=== PATIENT | male | born 1990 | race Asian ===

== ENCOUNTER 2018-03-03 05:59 | Inpatient (IN) | payer MEDICARE, MEDICAID ==
[~2018-03-03] VITALS: Ht 167.6 cm; Wt 73.7 kg
[~2018-03-03 05:59] MED LIST: RISP3 PO
[2018-03-03 06:57] LABS: BASOPHILS % (AUTO) 0.5 % (0.0-2.0); EOSINOPHILS % (AUTO) 0.1 % (1.0-6.0); HEMATOCRIT 48.6 % (41-53); HEMOGLOBIN 17.4 g/dL (13.5-17.5); LYMPHOCYTES # (AUTO) 1.3 K/uL (1.0-4.8); LYMPHOCYTES % (AUTO) 8.1 % (22.0-44.0); MEAN CORPUSCULAR HEMOGLOBIN 32.3 pg (26.0-34.0); MEAN CORPUSCULAR HGB CONC 35.9 G/dL (31.0-37.0); MEAN CORPUSCULAR VOLUME 90 fL (80-100); MONOCYTES # (AUTO) 1.5 K/uL (0.1-1.0); MONOCYTES % (AUTO) 9.3 % (2.0-9.0); NEUTROPHILS # (AUTO) 13.3 K/uL (1.8-7.7); PLATELET COUNT (AUTO) 289 K/uL (150-450); RED BLOOD CELL COUNT(AUTO) 5.39 MIL/uL (4.50-5.90); RED CELL DISTRIBUTION WIDTH 12.9 % (11.5-14.5)
[2018-03-03 07:14] LABS: ANION GAP 12 mmol/L (8-16); CALCIUM, TOTAL 9.2 mg/dL (8.8-10.5); CARBON DIOXIDE 22 mmol/L (22-29); CHLORIDE 104 mmol/L (98-107); CREATININE 1.31 mg/dL (0.60-1.30); GLOMERULAR FILTR. RATE CALC > 60 mL/min (>60); GLUCOSE,RANDOM 112 mg/dL (70-110); POTASSIUM 3.7 mmol/L (3.5-5.1); SODIUM SERUM 138 mmol/L (136-145); UREA NITROGEN, BLOOD 10 mg/dL (7-18)
[2018-03-03] MEDS ORDERED: LORazepam 2 MG/ML VIAL IM ONE (07:15)
[2018-03-03] MEDS ORDERED: DiphenhydrAMINE HCL 50 MG/ML VIAL IM ONE (07:15)
[2018-03-03] MEDS ORDERED: HALOPERIDOL LACTATE 5 MG/ML VIAL IM ONE (07:15)
[2018-03-03 07:21] LABS: ALANINE AMINOTRANSFERASE 40 U/L (12-78); ALBUMIN 4.4 g/dL (3.4-5.0); ALKALINE PHOSPHATASE 81 U/L (46-116); ASPARTATE AMINOTRANSFERASE 81 U/L (15-37); BILIRUBIN,TOTAL 0.8 mg/dL (0.1-1.0); TOTAL PROTEIN, SERUM 8.4 g/dL (6.4-8.2)
[2018-03-03] MEDS ORDERED: ZOLPIDEM TARTRATE 10 MG TABLET PO PRN (09:15)
[2018-03-03] MEDS ORDERED: PETROLATUM,WHITE 71 GM JELLY TP PRN (13:15)
[2018-03-03] MEDS ORDERED: CloNIDine HCL 0.1 MG TABLET PO PRN (13:15)
[2018-03-03] MEDS ORDERED: IBUPROFEN 600 MG TABLET PO PRN (13:15)
[2018-03-03] MEDS ORDERED: ACETAMINOPHEN 325 MG TABLET PO PRN (13:15)
[2018-03-03] MEDS ORDERED: BACITRACIN 28.4 GM OINTMENT TP PRN (13:15)
[2018-03-03] MEDS ORDERED: MAGNESIUM HYDROXIDE SUSPENSION 30 ML UDCUP PO PRN (13:15)
[2018-03-03] MEDS ORDERED: ONDANSETRON HCL 4 MG TABLET PO PRN (13:15)
[2018-03-03] MEDS ORDERED: LOPERAMIDE HCL 2 MG CAPSULE PO PRN (13:15)
[2018-03-03] MEDS ORDERED: BENZOCAINE/MENTHOL LOZENGE MM PRN (13:15)
[2018-03-03] MEDS ORDERED: ALBUTEROL SULFATE HFA 90 MCG/PUFF 8 GM INHALER IH PRN (13:15)
[2018-03-03] MEDS ORDERED: MAG HYDROX/AL HYDROX/SIMETH ES 30 ML SUSPENSION UDCUP PO PRN (13:15)
[2018-03-03] MEDS: DOCUSATE SODIUM 100 MG CAPSULE PO SCH (13:58)
[2018-03-03] MEDS: OMEPRAZOLE 20 MG CAPSULE PO SCH (13:58)
[2018-03-03 14:34] VITALS: BP 124/68
[2018-03-03] MEDS: RisperiDONE 3 MG TABLET PO SCH (16:29)
[2018-03-03] MEDS: NICOTINE 21 MG/24 HOUR PATCH TD SCH (17:45)
[2018-03-03 21:45] VITALS: BP 129/73
[2018-03-04 02:11] VITALS: BP 119/66
[2018-03-04 06:59] LABS: HEMATOCRIT 48.7 % (41-53); MEAN CORPUSCULAR HEMOGLOBIN 31.9 pg (26.0-34.0); MEAN CORPUSCULAR HGB CONC 34.9 G/dL (31.0-37.0); MEAN CORPUSCULAR VOLUME 92 fL (80-100); PLATELET COUNT (AUTO) 293 K/uL (150-450); RED BLOOD CELL COUNT(AUTO) 5.32 MIL/uL (4.50-5.90); RED CELL DISTRIBUTION WIDTH 12.5 % (11.5-14.5)
[2018-03-04 07:04] LABS: ANION GAP 9 mmol/L (8-16); CALCIUM, TOTAL 8.7 mg/dL (8.8-10.5); CARBON DIOXIDE 25 mmol/L (22-29); CHLORIDE 102 mmol/L (98-107); CREATININE 1.12 mg/dL (0.60-1.30); GLOMERULAR FILTR. RATE CALC > 60 mL/min (>60); GLUCOSE,RANDOM 94 mg/dL (70-110); PHOSPHORUS 3.7 mg/dL (2.5-4.9); SODIUM SERUM 136 mmol/L (136-145); UREA NITROGEN, BLOOD 14 mg/dL (7-18)
[2018-03-04 08:03] LABS: BAND NEUTROPHILS % (MANUAL) 1 % (0-5); EOSINOPHILS % (MANUAL) 1 % (1-6); LYMPHOCYTES % (MANUAL) 22 % (22-44); MONOCYTES % (MANUAL) 10 % (2-9); SEGMENTED NEUTROPHILS % 66 % (40-70)
[2018-03-04] MEDS: RisperiDONE 3 MG TABLET PO SCH (08:46)
[2018-03-04] MEDS: OMEPRAZOLE 20 MG CAPSULE PO SCH (08:46)
[2018-03-04] MEDS: DOCUSATE SODIUM 100 MG CAPSULE PO SCH (08:46)
[2018-03-04] MEDS: NICOTINE 21 MG/24 HOUR PATCH TD SCH (08:48)
[2018-03-04 09:00] VITALS: BP 126/68
[2018-03-04] MEDS: HALOPERIDOL 5 MG TABLET PO SCH (16:10)
[2018-03-04] MEDS: LORazepam 2 MG TABLET PO PRN (17:48)
[2018-03-04] MEDS: HALOPERIDOL 5 MG TABLET PO PRN (18:52)
[2018-03-04 22:36] VITALS: BP 126/77
[2018-03-05 08:02] VITALS: BP 124/70
[2018-03-05] MEDS: DOCUSATE SODIUM 100 MG CAPSULE PO SCH (08:02)
[2018-03-05] MEDS: HALOPERIDOL 5 MG TABLET PO SCH ×2 (08:02→16:07)
[2018-03-05] MEDS: OMEPRAZOLE 20 MG CAPSULE PO SCH (08:02)
[2018-03-05] MEDS: NICOTINE 21 MG/24 HOUR PATCH TD SCH (09:00)
[2018-03-05 16:00] VITALS: BP 115/76
[2018-03-05] MEDS: LORazepam 2 MG TABLET PO PRN (16:06)
[2018-03-06] MEDS: DOCUSATE SODIUM 100 MG CAPSULE PO SCH (08:09)
[2018-03-06] MEDS: OMEPRAZOLE 20 MG CAPSULE PO SCH (08:09)
[2018-03-06] MEDS: HALOPERIDOL 5 MG TABLET PO SCH ×2 (08:09→16:12)
[2018-03-06 08:23] VITALS: BP 118/68
[2018-03-06] MEDS: NICOTINE 21 MG/24 HOUR PATCH TD SCH (09:00)
[2018-03-06] MEDS: LORazepam 2 MG TABLET PO PRN ×2 (13:45→17:48)
[2018-03-06] MEDS: HALOPERIDOL 5 MG TABLET PO PRN (13:45)
[2018-03-06 16:14] VITALS: BP 131/73
[2018-03-07] MEDS: OMEPRAZOLE 20 MG CAPSULE PO SCH (08:05)
[2018-03-07] MEDS: HALOPERIDOL 5 MG TABLET PO SCH (08:06)
[2018-03-07 08:21] VITALS: BP 111/77
[2018-03-07] MEDS: NICOTINE 21 MG/24 HOUR PATCH TD SCH (09:00)
[2018-03-07] MEDS: DOCUSATE SODIUM 100 MG CAPSULE PO SCH (09:00)
[2018-03-07 16:27] VITALS: BP 122/75
[2018-03-07] MEDS: HALOPERIDOL 10 MG TABLET PO SCH (18:10)
[2018-03-07] MEDS: LORazepam 2 MG TABLET PO PRN (18:10)
[2018-03-08 08:23] VITALS: BP 114/68
[2018-03-08] MEDS: OMEPRAZOLE 20 MG CAPSULE PO SCH (08:33)
[2018-03-08] MEDS: DOCUSATE SODIUM 100 MG CAPSULE PO SCH (08:33)
[2018-03-08] MEDS: HALOPERIDOL 10 MG TABLET PO SCH ×2 (08:33→17:56)
[2018-03-08] MEDS ORDERED: HALOPERIDOL 10 MG TABLET PO SCH (09:00)
[2018-03-08] MEDS: NICOTINE 21 MG/24 HOUR PATCH TD SCH (09:00)
[2018-03-08] MEDS: LORazepam 2 MG TABLET PO PRN (15:40)
[2018-03-08 16:28] VITALS: BP 116/62
[2018-03-09] MEDS: HALOPERIDOL 10 MG TABLET PO SCH ×2 (08:05→16:26)
[2018-03-09] MEDS: DOCUSATE SODIUM 100 MG CAPSULE PO SCH (08:05)
[2018-03-09] MEDS: OMEPRAZOLE 20 MG CAPSULE PO SCH (08:05)
[2018-03-09] MEDS: LORazepam 2 MG TABLET PO PRN ×3 (08:14→17:53)
[2018-03-09 08:56] VITALS: BP 120/70
[2018-03-09 16:06] VITALS: BP 128/78
[2018-03-10] MEDS: LORazepam 2 MG TABLET PO PRN (05:43)
[2018-03-10 06:09] VITALS: BP 104/64
[2018-03-10 08:00] VITALS: BP 116/67
[2018-03-10] MEDS ORDERED: HALOPERIDOL DECANOATE 100 MG/ML VIAL IM SCH (09:00)
[2018-03-10] MEDS: HALOPERIDOL 10 MG TABLET PO SCH (09:13)
[2018-03-10] MEDS: DOCUSATE SODIUM 100 MG CAPSULE PO SCH (09:13)
[2018-03-10] MEDS: OMEPRAZOLE 20 MG CAPSULE PO SCH (09:13)
[2018-03-10] MEDS ORDERED: HALO10 PO (09:39)
[2018-03-10] MEDS ORDERED: HALO100V4 IM (09:39)
[2018-03-10] MEDS ORDERED: DSS100 PO (09:48)
[2018-03-10] MEDS ORDERED: OMEP20 PO (09:53)
== END 2018-03-10 11:00 | disposition home or self-care (01) | DRG 885 ==
LOC: EMS 06:00 → 3EC 09:58 → EMS 10:03 → 3EI 03-09 22:08
PROVIDERS: ADMIT Psychiatry & Neurology Psychiatry; ATTEND Psychiatry & Neurology Psychiatry
DX: F20.0 Paranoid schizophrenia (principal); F19.90 Other psychoactive substance use, unspecified, uncomplicated; D72.829 Elevated white blood cell count, unspecified; G47.00 Insomnia, unspecified; F79 Unspecified intellectual disabilities; F41.9 Anxiety disorder, unspecified; F17.210 Nicotine dependence, cigarettes, uncomplicated; K59.00 Constipation, unspecified; Z78.1 Physical restraint status; Z91.19 Patient's noncompliance with other medical treatment and regimen; Z72.89 Other problems related to lifestyle; Z79.899 Other long term (current) drug therapy; Z71.41 Alcohol abuse counseling and surveillance of alcoholic; Z71.6 Tobacco abuse counseling
CPT/HCPCS: 71046; 80074; 83735; 84100; 85007; 96372; 99291; G0480; J1200; J1630; J1631; J2060

== ENCOUNTER 2018-04-21 18:45 | Inpatient (IN) | payer MEDICARE, MEDICAID ==
[~2018-04-21] VITALS: Ht 170.2 cm; Wt 75.7 kg
[~2018-04-21 18:45] MED LIST changes: +DSS100 PO; +HALO10 PO; +HALO100V4 IM; +OMEP20 PO; -RISP3 PO
[2018-04-21] MEDS ORDERED: QUET100T PO (19:19)
[2018-04-21] MEDS ORDERED: FLUO-191 PO (19:19)
[2018-04-21] MEDS ORDERED: DIPH50 PO ×2 (19:19)
[2018-04-21] MEDS: ACTIVATED CHARCOAL 50 GM/240 ML SUSPENSION PO ONE ×2 (19:47→20:04)
[2018-04-21 20:29] LABS: BASOPHILS % (AUTO) 0.6 % (0.0-2.0); EOSINOPHILS % (AUTO) 1.7 % (1.0-6.0); HEMOGLOBIN 15.2 g/dL (13.5-17.5); LYMPHOCYTES # (AUTO) 1.5 K/uL (1.0-4.8); LYMPHOCYTES % (AUTO) 16.6 % (22.0-44.0); MEAN CORPUSCULAR HEMOGLOBIN 32.2 pg (26.0-34.0); MEAN CORPUSCULAR HGB CONC 35.5 G/dL (31.0-37.0); MEAN CORPUSCULAR VOLUME 91 fL (80-100); MONOCYTES # (AUTO) 0.7 K/uL (0.1-1.0); MONOCYTES % (AUTO) 7.6 % (2.0-9.0); NEUTROPHILS # (AUTO) 6.6 K/uL (1.8-7.7); NEUTROPHILS % (AUTO) 73.5 % (40.0-70.0); PLATELET COUNT (AUTO) 221 K/uL (150-450); RED BLOOD CELL COUNT(AUTO) 4.73 MIL/uL (4.50-5.90)
[2018-04-21 20:32] LABS: AMPHET/METH SCREEN,URINE NEGATIVE (NEGATIVE); BARBITURATE SCREEN, URINE NEGATIVE (NEGATIVE); BENZODIAZEPINES SCREEN,URINE NEGATIVE (NEGATIVE); CANNABINOID SCREEN,URINE NEGATIVE (NEGATIVE); COCAINE SCREEN,URINE NEGATIVE (NEGATIVE); METHADONE SCREEN, URINE NEGATIVE (NEGATIVE); OPIATE SCREEN,URINE NEGATIVE (NEGATIVE); PHENCYCLIDINE SCREEN,URINE NEGATIVE (NEGATIVE)
[2018-04-21 20:44] LABS: ALANINE AMINOTRANSFERASE 20 U/L (12-78); ALBUMIN 3.7 g/dL (3.4-5.0); ALKALINE PHOSPHATASE 66 U/L (46-116); ANION GAP 9 mmol/L (8-16); ASPARTATE AMINOTRANSFERASE 18 U/L (15-37); BILIRUBIN,TOTAL 0.5 mg/dL (0.1-1.0); CALCIUM, TOTAL 8.2 mg/dL (8.8-10.5); CARBON DIOXIDE 24 mmol/L (22-29); CHLORIDE 102 mmol/L (98-107); CREATININE 1.13 mg/dL (0.60-1.30); GLOMERULAR FILTR. RATE CALC > 60 mL/min (>60); GLUCOSE,RANDOM 109 mg/dL (70-110); SALICYLATE 3.9 mg/dL (2.8-20.0); SODIUM SERUM 135 mmol/L (136-145); UREA NITROGEN, BLOOD 13 mg/dL (7-18)
[2018-04-21 20:45] LABS: POTASSIUM 2.9 mmol/L (3.5-5.1)
[2018-04-21 20:55] LABS: ACETAMINOPHEN < 2 mcg/mL (10-30)
[2018-04-21] MEDS ORDERED: POTASSIUM CHLORIDE 40 MEQ in SODIUM CHLORIDE 0.45% 1,000 ML IV ONE (21:00)
[2018-04-22 01:15] LABS: ALANINE AMINOTRANSFERASE 21 U/L (12-78); ALBUMIN 3.5 g/dL (3.4-5.0); ALKALINE PHOSPHATASE 63 U/L (46-116); ANION GAP 8 mmol/L (8-16); ASPARTATE AMINOTRANSFERASE 16 U/L (15-37); BILIRUBIN,TOTAL 0.5 mg/dL (0.1-1.0); CALCIUM, TOTAL 8.4 mg/dL (8.8-10.5); CARBON DIOXIDE 23 mmol/L (22-29); CHLORIDE 108 mmol/L (98-107); GLOMERULAR FILTR. RATE CALC > 60 mL/min (>60); GLUCOSE,RANDOM 91 mg/dL (70-110); SODIUM SERUM 139 mmol/L (136-145); TOTAL PROTEIN, SERUM 6.9 g/dL (6.4-8.2); UREA NITROGEN, BLOOD 11 mg/dL (7-18)
[2018-04-22] MEDS ORDERED: HALOPERIDOL 5 MG TABLET PO PRN (12:45)
[2018-04-22] MEDS: LORazepam 2 MG TABLET PO PRN (16:12)
[2018-04-22 16:15] VITALS: BP 119/74
[2018-04-22] MEDS ORDERED: MAG HYDROX/AL HYDROX/SIMETH ES 30 ML SUSPENSION UDCUP PO PRN ×2 (16:15→16:30)
[2018-04-22] MEDS ORDERED: LOPERAMIDE HCL 2 MG CAPSULE PO PRN ×2 (16:15→16:30)
[2018-04-22] MEDS ORDERED: ACETAMINOPHEN 325 MG TABLET PO PRN ×2 (16:15→16:30)
[2018-04-22] MEDS ORDERED: ALBUTEROL SULFATE HFA 90 MCG/PUFF 8 GM INHALER IH PRN ×2 (16:15→16:30)
[2018-04-22] MEDS ORDERED: ONDANSETRON HCL 4 MG TABLET PO PRN ×2 (16:15→16:30)
[2018-04-22] MEDS ORDERED: IBUPROFEN 400 MG TABLET PO PRN ×2 (16:15→16:30)
[2018-04-22] MEDS ORDERED: DOCUSATE SODIUM 100 MG CAPSULE PO PRN ×2 (16:15→16:30)
[2018-04-22] MEDS ORDERED: PETROLATUM,WHITE 71 GM JELLY TP PRN ×2 (16:15→16:30)
[2018-04-22] MEDS ORDERED: MAGNESIUM HYDROXIDE SUSPENSION 30 ML UDCUP PO PRN ×2 (16:15→16:30)
[2018-04-22] MEDS ORDERED: CloNIDine HCL 0.1 MG TABLET PO PRN ×2 (16:15→16:30)
[2018-04-22] MEDS: ZOLPIDEM TARTRATE 10 MG TABLET PO PRN (21:28)
[2018-04-23 01:23] VITALS: BP 122/80
[2018-04-23] MEDS: LORazepam 2 MG TABLET PO PRN ×3 (01:39→18:52)
[2018-04-23 07:20] LABS: BASOPHILS % (AUTO) 0.9 % (0.0-2.0); EOSINOPHILS % (AUTO) 5.2 % (1.0-6.0); HEMATOCRIT 45.3 % (41-53); HEMOGLOBIN 15.8 g/dL (13.5-17.5); LYMPHOCYTES # (AUTO) 1.7 K/uL (1.0-4.8); LYMPHOCYTES % (AUTO) 28.2 % (22.0-44.0); MEAN CORPUSCULAR HEMOGLOBIN 31.9 pg (26.0-34.0); MEAN CORPUSCULAR HGB CONC 34.9 G/dL (31.0-37.0); MEAN CORPUSCULAR VOLUME 91 fL (80-100); MONOCYTES # (AUTO) 0.6 K/uL (0.1-1.0); MONOCYTES % (AUTO) 9.9 % (2.0-9.0); NEUTROPHILS # (AUTO) 3.4 K/uL (1.8-7.7); NEUTROPHILS % (AUTO) 55.8 % (40.0-70.0); PLATELET COUNT (AUTO) 244 K/uL (150-450); RED BLOOD CELL COUNT(AUTO) 4.96 MIL/uL (4.50-5.90); RED CELL DISTRIBUTION WIDTH 13.2 % (11.5-14.5)
[2018-04-23 07:44] LABS: HEMOGLOBIN A1C 4.9 % (4.5-6.2)
[2018-04-23 07:52] LABS: ALANINE AMINOTRANSFERASE 17 U/L (12-78); ALBUMIN 3.7 g/dL (3.4-5.0); ALKALINE PHOSPHATASE 70 U/L (46-116); ANION GAP 7 mmol/L (8-16); ASPARTATE AMINOTRANSFERASE 17 U/L (15-37); BILIRUBIN,TOTAL 0.7 mg/dL (0.1-1.0); CALCIUM, TOTAL 8.9 mg/dL (8.8-10.5); CARBON DIOXIDE 27 mmol/L (22-29); CHLORIDE 105 mmol/L (98-107); CHOL/HDL RATIO 3.9 (4.2-7.3); CHOLESTEROL 171 mg/dL (131-200); CREATININE 1.03 mg/dL (0.60-1.30); GLOMERULAR FILTR. RATE CALC > 60 mL/min (>60); GLUCOSE,RANDOM 84 mg/dL (70-110); HDL CHOLESTEROL 44 mg/dL (40-60); LDL CHOL (CALC.) 100 mg/dL (0-130); POTASSIUM 4.4 mmol/L (3.5-5.1); SODIUM SERUM 139 mmol/L (136-145); THYROID STIMULATING HORMONE 0.34 uIU/mL (0.36-3.74); TRIGLYCERIDES 133 mg/dL (15-150); UREA NITROGEN, BLOOD 19 mg/dL (7-18)
[2018-04-23] MEDS: HALOPERIDOL 10 MG TABLET PO SCH ×2 (08:07→16:11)
[2018-04-23] MEDS: NICOTINE 14 MG/24 HOUR PATCH TD SCH (08:08)
[2018-04-23 08:37] VITALS: BP 125/66
[2018-04-23] MEDS ORDERED: NICOTINE 14 MG/24 HOUR PATCH TD SCH (09:00)
[2018-04-23 16:11] VITALS: BP 117/62
[2018-04-24 01:53] VITALS: BP 103/62
[2018-04-24] MEDS: HALOPERIDOL 10 MG TABLET PO SCH ×2 (08:13→16:34)
[2018-04-24] MEDS: NICOTINE 14 MG/24 HOUR PATCH TD SCH (08:17)
[2018-04-24 08:35] VITALS: BP 118/64
[2018-04-24] MEDS: LORazepam 2 MG TABLET PO PRN ×3 (10:59→20:38)
[2018-04-24 16:07] VITALS: BP 139/89
[2018-04-24] MEDS: ZOLPIDEM TARTRATE 10 MG TABLET PO PRN (21:07)
[2018-04-25 05:57] VITALS: BP 130/86
[2018-04-25] MEDS: HALOPERIDOL 10 MG TABLET PO SCH (08:13)
[2018-04-25] MEDS: NICOTINE 14 MG/24 HOUR PATCH TD SCH (08:13)
[2018-04-25 08:30] VITALS: BP 102/62
== END 2018-04-25 13:05 | disposition home or self-care (01) | DRG 885 ==
LOC: EMS 18:47 → B2X 04-22 13:11
PROVIDERS: ADMIT Psychiatry & Neurology Psychiatry; ATTEND Psychiatry & Neurology Psychiatry
DX: F20.0 Paranoid schizophrenia (principal); R45.851 Suicidal ideations; F79 Unspecified intellectual disabilities; R45.87 Impulsiveness; K59.00 Constipation, unspecified; E87.6 Hypokalemia; F17.200 Nicotine dependence, unspecified, uncomplicated; F10.10 Alcohol abuse, uncomplicated; F41.9 Anxiety disorder, unspecified; T50.902A Poisoning by unspecified drugs, medicaments and biological substances, intentional self-harm, initial encounter; Z91.19 Patient's noncompliance with other medical treatment and regimen
CPT/HCPCS: 83036; 84443; 93005; 96365; 96366; 99291; G0480; G0481; J3480

== ENCOUNTER 2019-04-03 03:01 | Emergency (ER) | payer MEDICARE, MEDICAID ==
[~2019-04-03] VITALS: Ht 170.2 cm; Wt 72.7 kg
[~2019-04-03 03:01] MED LIST changes: +DIVA500T52 PO; -DSS100 PO; -HALO100V4 IM; -OMEP20 PO; +TRAZ-220 PO
[2019-04-03 03:22] LABS: BASOPHILS % (AUTO) 0.3 % (0.0-2.0); EOSINOPHILS % (AUTO) 0.3 % (1.0-6.0); HEMOGLOBIN 15.5 g/dL (13.5-17.5); LYMPHOCYTES % (AUTO) 8.2 % (22.0-44.0); MEAN CORPUSCULAR HEMOGLOBIN 31.2 pg (26.0-34.0); MEAN CORPUSCULAR HGB CONC 34.5 G/dL (31.0-37.0); MEAN CORPUSCULAR VOLUME 91 fL (80-100); MONOCYTES # (AUTO) 0.8 K/uL (0.1-1.0); MONOCYTES % (AUTO) 6.4 % (2.0-9.0); NEUTROPHILS # (AUTO) 10.8 K/uL (1.8-7.7); NEUTROPHILS % (AUTO) 84.8 % (40.0-70.0); PLATELET COUNT (AUTO) 257 K/uL (150-450); RED BLOOD CELL COUNT(AUTO) 4.97 MIL/uL (4.50-5.90); RED CELL DISTRIBUTION WIDTH 12.7 % (11.5-14.5)
[2019-04-03 03:30] LABS: ANION GAP 9 mmol/L (8-16); CALCIUM, TOTAL 9.9 mg/dL (8.8-10.5); CARBON DIOXIDE 24 mmol/L (22-29); CHLORIDE 99 mmol/L (98-107); CREATININE 1.18 mg/dL (0.60-1.30); GLOMERULAR FILTR. RATE CALC > 60 mL/min (>60); GLUCOSE,RANDOM 120 mg/dL (70-110); POTASSIUM 3.4 mmol/L (3.5-5.1); SODIUM SERUM 132 mmol/L (136-145); UREA NITROGEN, BLOOD 6 mg/dL (7-18)
[2019-04-03] MEDS ORDERED: QUET25TA PO (03:32)
[2019-04-03 03:36] LABS: ALANINE AMINOTRANSFERASE 29 U/L (12-78); ALBUMIN 3.8 g/dL (3.4-5.0); ALKALINE PHOSPHATASE 99 U/L (46-116); ASPARTATE AMINOTRANSFERASE 25 U/L (15-37); BILIRUBIN,TOTAL 0.5 mg/dL (0.1-1.0); TOTAL PROTEIN, SERUM 7.9 g/dL (6.4-8.2)
[2019-04-03 03:44] LABS: AMPHET/METH SCREEN,URINE NEGATIVE (NEGATIVE); BARBITURATE SCREEN, URINE NEGATIVE (NEGATIVE); BENZODIAZEPINES SCREEN,URINE NEGATIVE (NEGATIVE); CANNABINOID SCREEN,URINE NEGATIVE (NEGATIVE); COCAINE SCREEN,URINE NEGATIVE (NEGATIVE); METHADONE SCREEN, URINE NEGATIVE (NEGATIVE); OPIATE SCREEN,URINE NEGATIVE (NEGATIVE)
[2019-04-03 03:45] LABS: PHENCYCLIDINE SCREEN,URINE NEGATIVE (NEGATIVE)
[2019-04-03] MEDS ORDERED: LORazepam 2 MG TABLET PO ONE (03:45)
[2019-04-03] MEDS ORDERED: ALPRAZolam 1 MG TABLET PO ONE (04:00)
[2019-04-03] MEDS ORDERED: ALPRAZolam 0.5 MG TABLET PO ONE (04:00)
[2019-04-03] MEDS ORDERED: LAMO100T13 PO (06:00)
[2019-04-03] MEDS ORDERED: HALO100A IM (06:00)
[2019-04-03 07:15] VITALS: BP 101/64
== END 2019-04-03 08:38 | disposition home or self-care (01) ==
LOC: EMS 03:01
DX: F41.9 Anxiety disorder, unspecified (principal); F20.9 Schizophrenia, unspecified; F17.210 Nicotine dependence, cigarettes, uncomplicated
CPT/HCPCS: 36415; 80053; 80307; 85025; 99284; G0480

== ENCOUNTER → 2019-06-25 | Outpatient (CLI) | payer MEDICARE, MEDICAID ==
[~2019-06-25] MED LIST changes: -DIVA500T52 PO; +HALO100A IM; +LAMO100T16 PO; +QUET25TA PO
== END | disposition home or self-care (01) ==
LOC: LABMN 10:30
PROVIDERS: ATTEND Psychiatry & Neurology Psychiatry
DX: F20.9 Schizophrenia, unspecified (principal)
CPT/HCPCS: 80173

== ENCOUNTER → 2020-12-22 | Outpatient (CLI) | payer MEDICARE, MEDICAID ==
[~2020-12-22] MED LIST changes: -TRAZ-220 PO; +TRAZ-257 PO
[2020-12-22 16:32] LABS: HEMOGLOBIN A1C 5.5 % (3.8-5.6)
[2020-12-22 16:44] LABS: CHOL/HDL RATIO 5.3 (4.2-7.3)
== END | disposition home or self-care (01) ==
LOC: LABPV 12:35
PROVIDERS: ATTEND Psychiatry & Neurology Psychiatry
DX: F20.9 Schizophrenia, unspecified (principal); Z79.899 Other long term (current) drug therapy
CPT/HCPCS: 82947; 83036

== ENCOUNTER → 2021-01-26 | Outpatient (CLI) | payer MEDICARE, MEDICAID | END | disposition home or self-care (01) | LOC: LABPV 13:38 | PROVIDERS: ATTEND Psychiatry & Neurology Psychiatry | DX: F20.9 Schizophrenia, unspecified (principal) | CPT/HCPCS: 80173 ==

== ENCOUNTER → 2021-02-16 | Outpatient (CLI) | payer MEDICARE, MEDICAID | END | disposition home or self-care (01) | LOC: LABMN 11:12 | PROVIDERS: ATTEND Psychiatry & Neurology Psychiatry | DX: F20.9 Schizophrenia, unspecified (principal) | CPT/HCPCS: 80173 ==

== ENCOUNTER → 2021-10-23 | Outpatient (CLI) | payer MEDICARE, MEDICAID ==
[2021-10-23 16:29] LABS: CHOL/HDL RATIO 4.7 (4.2-7.3); HEMOGLOBIN A1C 5.5 % (3.8-5.6)
== END | disposition home or self-care (01) ==
LOC: LABPV 10:52
PROVIDERS: ATTEND Psychiatry & Neurology Psychiatry
DX: F20.9 Schizophrenia, unspecified (principal); Z79.899 Other long term (current) drug therapy
CPT/HCPCS: 80061; 82947; 83036

== ENCOUNTER 2022-02-25 19:45 | Inpatient (IN) | payer MEDICARE, MEDICAID ==
[~2022-02-25] VITALS: Ht 172.7 cm; Wt 96.7 kg
[~2022-02-25 19:45] MED LIST changes: -HALO10 PO; +HALO10TA21 PO
[2022-02-25] MEDS ORDERED: TraZODone HCL 50 MG TABLET PO ONE (22:30)
[2022-02-25] MEDS ORDERED: GABAPENTIN 400 MG CAPSULE PO ONE (22:30)
[2022-02-25] MEDS ORDERED: HALOPERIDOL 5 MG TABLET PO ONE (22:30)
[2022-02-25] MEDS ORDERED: QUEtiapine FUMARATE 100 MG TABLET PO ONE (22:30)
[2022-02-25] MEDS ORDERED: ZOLPIDEM TARTRATE 10 MG TABLET PO PRN (23:45)
[2022-02-25] MEDS ORDERED: OLANZapine 5 MG RAPDIS TABLET PO PRN (23:45)
[2022-02-25] MEDS ORDERED: LORazepam 2 MG TABLET PO PRN (23:45)
[2022-02-25 23:54] LABS: APPEARANCE,URINE CLEAR (CLEAR); BILIRUBIN,URINE NEGATIVE (NEGATIVE); GLUCOSE, URINE (UA) NEGATIVE (NEGATIVE); KETONES,URINE NEGATIVE (NEGATIVE); LEUKOCYTE ESTERASE ,URINE NEGATIVE (NEGATIVE); NITRATE,URINE NEGATIVE (NEGATIVE); OCCULT BLOOD,URINE NEGATIVE (NEGATIVE); PROTEIN,URINE NEGATIVE (NEGATIVE); SPECIFIC GRAVITIY, URINE 1.004 (1.003-1.030); UROBILINOGEN,URINE <=1.0 mg/dL (<=1.0)
[2022-02-26 00:01] LABS: AMPHET/METH SCREEN,URINE NEGATIVE (NEGATIVE); BARBITURATE SCREEN, URINE NEGATIVE (NEGATIVE); BENZODIAZEPINES SCREEN,URINE NEGATIVE (NEGATIVE); CANNABINOID SCREEN,URINE NEGATIVE (NEGATIVE); COCAINE SCREEN,URINE NEGATIVE (NEGATIVE); METHADONE SCREEN, URINE NEGATIVE (NEGATIVE); OPIATE SCREEN,URINE NEGATIVE (NEGATIVE)
[2022-02-26 00:03] LABS: PHENCYCLIDINE SCREEN,URINE NEGATIVE (NEGATIVE)
[2022-02-26 01:32] LABS: BASOPHILS % (AUTO) 0.9 % (0.0-2.0); EOSINOPHILS % (AUTO) 0.6 % (1.0-6.0); HEMATOCRIT 39.2 % (41-53); HEMOGLOBIN 13.6 g/dL (13.5-17.5); LYMPHOCYTES # (AUTO) 1.8 K/uL (1.0-4.8); LYMPHOCYTES % (AUTO) 26.4 % (22.0-44.0); MEAN CORPUSCULAR HEMOGLOBIN 30.1 pg (26.0-34.0); MEAN CORPUSCULAR HGB CONC 34.7 G/dL (31.0-37.0); MEAN CORPUSCULAR VOLUME 87 fL (80-100); MONOCYTES # (AUTO) 0.9 K/uL (0.1-1.0); MONOCYTES % (AUTO) 13.9 % (2.0-9.0); NEUTROPHILS # (AUTO) 3.9 K/uL (1.8-7.7); NEUTROPHILS % (AUTO) 58.2 % (40.0-70.0); PLATELET COUNT (AUTO) 306 K/uL (150-450); RED BLOOD CELL COUNT(AUTO) 4.52 MIL/uL (4.50-5.90); RED CELL DISTRIBUTION WIDTH 12.8 % (11.5-14.5)
[2022-02-26 02:08] LABS: ANION GAP 10 mmol/L (8-16); CALCIUM, TOTAL 9.3 mg/dL (8.8-10.5); CARBON DIOXIDE 26 mmol/L (22-29); CHLORIDE 103 mmol/L (98-107); GLOMERULAR FILTR. RATE CALC 54 mL/min (>60); GLUCOSE,RANDOM 108 mg/dL (70-110); SODIUM SERUM 139 mmol/L (136-145); UREA NITROGEN, BLOOD 13 mg/dL (7-18)
[2022-02-26 02:14] LABS: ALANINE AMINOTRANSFERASE 39 U/L (12-78); ALKALINE PHOSPHATASE 68 U/L (46-116); ASPARTATE AMINOTRANSFERASE 44 U/L (15-37); BILIRUBIN,TOTAL 0.3 mg/dL (0.1-1.0); TOTAL PROTEIN, SERUM 8.2 g/dL (6.4-8.2)
[2022-02-26 03:08] LABS: COVID AG,FIA SOURCE NASOPHARYNGEAL
[2022-02-26 12:53] VITALS: BP 136/77
[2022-02-26] MEDS ORDERED: ALBU8HFA IH (13:43)
[2022-02-26] MEDS ORDERED: ATOM100C2 PO (13:43)
[2022-02-26] MEDS ORDERED: GABA800T9 PO (13:43)
[2022-02-26] MEDS ORDERED: FENO48TA10 PO (13:43)
[2022-02-26] MEDS ORDERED: SERT-440 PO (13:43)
[2022-02-26] MEDS ORDERED: BUSP30TA2 PO (13:43)
[2022-02-26] MEDS ORDERED: GuaiFENesin/D-METHORPHAN [SUGAR-FREE] 200-20MG/10 ML SYRUP UDCUP PO PRN (15:15)
[2022-02-26] MEDS ORDERED: TUBERCULIN, PURIFIED PROTEIN DERIVATIVE 5 TU/0.1 ML SYRINGE ID ONE (15:15)
[2022-02-26] MEDS ORDERED: LOPERAMIDE HCL 2 MG CAPSULE PO PRN (15:15)
[2022-02-26] MEDS ORDERED: HALOPERIDOL 5 MG TABLET PO PRN (15:15)
[2022-02-26] MEDS ORDERED: MAGNESIUM HYDROXIDE SUSPENSION 30 ML UDCUP PO PRN (15:15)
[2022-02-26] MEDS ORDERED: ACETAMINOPHEN 325 MG TABLET PO PRN (15:15)
[2022-02-26] MEDS ORDERED: PROMETHAZINE HCL 25 MG TABLET PO PRN (15:15)
[2022-02-26] MEDS ORDERED: HydrOXYzine PAMOATE 50 MG CAPSULE PO PRN (15:15)
[2022-02-26] MEDS ORDERED: MAG HYDROX/AL HYDROX/SIMETH ES 30 ML SUSPENSION UDCUP PO PRN (15:15)
[2022-02-26] MEDS: HALOPERIDOL 5 MG TABLET PO SCH (16:01)
[2022-02-26] MEDS: GABAPENTIN 400 MG CAPSULE PO SCH ×2 (16:01→20:54)
[2022-02-26] MEDS: THIAMINE 100 MG TABLET PO SCH (16:01)
[2022-02-26] MEDS: QUEtiapine FUMARATE 100 MG TABLET PO SCH (16:01)
[2022-02-26 16:39] VITALS: BP 115/76
[2022-02-26] MEDS: BENZTROPINE MESYLATE 0.5 MG TABLET PO SCH (16:47)
[2022-02-26] MEDS: BusPIRone HCL 15 MG TABLET PO SCH (16:47)
[2022-02-26] MEDS: ATORVASTATIN CALCIUM 20 MG TABLET PO SCH (16:49)
[2022-02-26] MEDS: MELATONIN 5 MG TABLET PO SCH ×2 (20:53→21:22)
[2022-02-26] MEDS: QUEtiapine FUMARATE 200 MG TABLET PO SCH (20:54)
[2022-02-27 07:19] LABS: FREE T4 (FREE THYROXINE) 0.84 ng/dL (0.76-1.46); THYROID STIMULATING HORMONE 1.18 uIU/mL (0.36-3.74)
[2022-02-27 08:00] VITALS: BP 136/93
[2022-02-27] MEDS: QUEtiapine FUMARATE 100 MG TABLET PO SCH ×3 (08:30→16:22)
[2022-02-27] MEDS: HALOPERIDOL 5 MG TABLET PO SCH ×3 (08:30→16:21)
[2022-02-27] MEDS: OMEGA-3/DHA/EPA/FISH OIL 1,000 MG CAPSULE PO SCH (08:30)
[2022-02-27] MEDS: NALTREXONE HCL 50 MG TABLET PO SCH (08:30)
[2022-02-27] MEDS: THIAMINE 100 MG TABLET PO SCH ×2 (08:30→16:21)
[2022-02-27] MEDS: SERTRALINE HCL 100 MG TABLET PO SCH (08:31)
[2022-02-27] MEDS: MULTIVITAMINS WITH MINERALS, THERAPEUTIC TABLET PO SCH (08:31)
[2022-02-27] MEDS: ATORVASTATIN CALCIUM 20 MG TABLET PO SCH (08:31)
[2022-02-27] MEDS: FOLIC ACID 1 MG TABLET PO SCH (08:31)
[2022-02-27] MEDS: GABAPENTIN 400 MG CAPSULE PO SCH ×4 (08:31→20:06)
[2022-02-27] MEDS: BENZTROPINE MESYLATE 0.5 MG TABLET PO SCH ×2 (08:32→16:21)
[2022-02-27] MEDS: BusPIRone HCL 15 MG TABLET PO SCH ×2 (08:32→16:21)
[2022-02-27 17:32] VITALS: BP 128/79
[2022-02-27] MEDS: QUEtiapine FUMARATE 200 MG TABLET PO SCH (20:07)
[2022-02-27] MEDS: MELATONIN 5 MG TABLET PO SCH (20:07)
[2022-02-28 08:00] VITALS: BP 124/78
[2022-02-28] MEDS: SERTRALINE HCL 100 MG TABLET PO SCH (08:21)
[2022-02-28] MEDS: THIAMINE 100 MG TABLET PO SCH ×2 (08:21→16:14)
[2022-02-28] MEDS: NALTREXONE HCL 50 MG TABLET PO SCH (08:21)
[2022-02-28] MEDS: OMEGA-3/DHA/EPA/FISH OIL 1,000 MG CAPSULE PO SCH (08:21)
[2022-02-28] MEDS: BusPIRone HCL 15 MG TABLET PO SCH ×2 (08:22→16:14)
[2022-02-28] MEDS: ATORVASTATIN CALCIUM 20 MG TABLET PO SCH (08:22)
[2022-02-28] MEDS: FOLIC ACID 1 MG TABLET PO SCH (08:22)
[2022-02-28] MEDS: BENZTROPINE MESYLATE 0.5 MG TABLET PO SCH ×2 (08:22→16:14)
[2022-02-28] MEDS: QUEtiapine FUMARATE 100 MG TABLET PO SCH ×3 (08:25→16:14)
[2022-02-28] MEDS: MULTIVITAMINS WITH MINERALS, THERAPEUTIC TABLET PO SCH (08:25)
[2022-02-28] MEDS: GABAPENTIN 400 MG CAPSULE PO SCH ×4 (08:25→20:26)
[2022-02-28] MEDS: HALOPERIDOL 5 MG TABLET PO SCH ×3 (08:25→16:14)
[2022-02-28 16:36] VITALS: BP 126/80
[2022-02-28] MEDS: QUEtiapine FUMARATE 200 MG TABLET PO SCH (20:27)
[2022-02-28] MEDS: MELATONIN 5 MG TABLET PO SCH (20:27)
[2022-03-01] MEDS: NALTREXONE HCL 50 MG TABLET PO SCH (08:56)
[2022-03-01] MEDS: BENZTROPINE MESYLATE 0.5 MG TABLET PO SCH (08:56)
[2022-03-01] MEDS: OMEGA-3/DHA/EPA/FISH OIL 1,000 MG CAPSULE PO SCH (08:56)
[2022-03-01] MEDS: GABAPENTIN 400 MG CAPSULE PO SCH ×2 (08:56→12:47)
[2022-03-01] MEDS: HALOPERIDOL 5 MG TABLET PO SCH ×2 (08:56→12:47)
[2022-03-01] MEDS: QUEtiapine FUMARATE 100 MG TABLET PO SCH ×2 (08:57→12:47)
[2022-03-01] MEDS: THIAMINE 100 MG TABLET PO SCH (08:57)
[2022-03-01] MEDS: FOLIC ACID 1 MG TABLET PO SCH (08:57)
[2022-03-01] MEDS: ATORVASTATIN CALCIUM 20 MG TABLET PO SCH (08:57)
[2022-03-01] MEDS: BusPIRone HCL 15 MG TABLET PO SCH (08:57)
[2022-03-01] MEDS: MULTIVITAMINS WITH MINERALS, THERAPEUTIC TABLET PO SCH (08:57)
[2022-03-01] MEDS: SERTRALINE HCL 100 MG TABLET PO SCH (08:58)
[2022-03-01 09:07] VITALS: BP 123/90
[2022-03-01] MEDS ORDERED: BENZ0.5T49 PO (12:33)
[2022-03-01] MEDS ORDERED: NALT50TA PO (12:33)
[2022-03-01] MEDS ORDERED: MELA5TAB40 PO (12:33)
[2022-03-01] MEDS ORDERED: QUET200T30 PO (12:33)
[2022-03-01] MEDS ORDERED: SERT-440 PO (12:33)
[2022-03-01] MEDS ORDERED: QUET100T34 PO (12:33)
[2022-03-01] MEDS ORDERED: GABA-1201 PO ×2 (12:33)
[2022-03-01] MEDS ORDERED: BUSP15 PO (12:33)
[2022-03-01] MEDS ORDERED: HALO5TAB23 PO (12:33)
[2022-03-01] MEDS ORDERED: ATOR20TA86 PO ×2 (13:26→13:29)
== END 2022-03-01 15:00 | disposition home or self-care (01) | DRG 885 ==
LOC: EMS 19:53 → 3EX 02-26 12:24
PROVIDERS: ADMIT Psychiatry & Neurology Psychiatry; ATTEND Psychiatry & Neurology Psychiatry
DX: F20.0 Paranoid schizophrenia (principal); F79 Unspecified intellectual disabilities; Z20.822 Contact with and (suspected) exposure to COVID-19; F17.210 Nicotine dependence, cigarettes, uncomplicated; J44.9 Chronic obstructive pulmonary disease, unspecified; R45.850 Homicidal ideations; Z55.9 Problems related to education and literacy, unspecified; Z59.9 Problem related to housing and economic circumstances, unspecified; Z63.9 Problem related to primary support group, unspecified; Z65.3 Problems related to other legal circumstances; Z79.899 Other long term (current) drug therapy; Z91.19 Patient's noncompliance with other medical treatment and regimen; Z91.51 Personal history of suicidal behavior
CPT/HCPCS: 80053; 80173; 81003; 84439; 84443; 85025; 99285; G0378; G0480; Q9967

== ENCOUNTER → 2022-07-02 | Outpatient (CLI) | payer MEDICARE, MEDICAID ==
[~2022-07-02] MED LIST changes: +ATOR20TA86 PO; +BENZ0.5T49 PO; +BUSP15 PO; +BUSP30TA2 PO; +GABA-1201 PO; +GABA800T9 PO; -HALO100A IM; -HALO10TA21 PO; +HALO5TAB23 PO; -LAMO100T16 PO; +MELA5TAB40 PO; +NALT50TA PO; +QUET100T34 PO; +QUET200T30 PO; -QUET25TA PO; +SERT-440 PO; -TRAZ-257 PO
[2022-07-06 12:16] LABS: CREATININE 1.32 mg/dL (0.60-1.30); GLOMERULAR FILTR. RATE CALC > 60 mL/min (>60); THYROID STIMULATING HORMONE 1.64 uIU/mL (0.36-3.74)
[2022-07-06 12:17] LABS: LITHIUM 0.43 mmol/L (0.60-1.20)
[2022-07-06 13:04] LABS: FREE T4 (FREE THYROXINE) 0.64 ng/dL (0.76-1.46)
== END | disposition home or self-care (01) ==
LOC: LABMN 11:35
PROVIDERS: ATTEND Psychiatry & Neurology Psychiatry
DX: F20.9 Schizophrenia, unspecified (principal); I10 Essential (primary) hypertension
CPT/HCPCS: 80178; 82565; 84439; 84443

== ENCOUNTER → 2022-11-23 | Outpatient (CLI) | payer MEDICARE, MEDICAID ==
[2022-11-23 19:22] LABS: HEMOGLOBIN A1C 5.5 % (3.8-5.6)
[2022-11-23 19:27] LABS: CHOL/HDL RATIO 3.6 (4.2-7.3)
== END | disposition home or self-care (01) ==
LOC: LABMN 12:24
PROVIDERS: ATTEND Psychiatry & Neurology Psychiatry
DX: F20.9 Schizophrenia, unspecified (principal); Z79.899 Other long term (current) drug therapy
CPT/HCPCS: 80061; 82947; 83036

== ENCOUNTER → 2023-01-20 | Outpatient (CLI) | payer MEDICARE, MEDICAID ==
[~2023-01-20] MED LIST changes: +HALO10TA21 PO; +LITH300C3 PO; +QUET200T PO; +SERT-162 PO; +TRAZ-257 PO
== END | disposition home or self-care (01) ==
LOC: RADMN 11:07
PROVIDERS: ATTEND Internal Medicine Pulmonary Disease
DX: J44.1 Chronic obstructive pulmonary disease with (acute) exacerbation (principal); R06.02 Shortness of breath
CPT/HCPCS: 71046

== ENCOUNTER → 2023-01-20 | Outpatient (CLI) | payer MEDICARE, MEDICAID ==
[~2023-01-20] VITALS: Ht 172.7 cm; Wt 103.5 kg
[2023-01-20 10:21] VITALS: BP 132/83
== END | disposition home or self-care (01) ==
LOC: SRCNTR 09:44
PROVIDERS: ATTEND Internal Medicine Pulmonary Disease
DX: F20.9 Schizophrenia, unspecified (principal); E66.9 Obesity, unspecified; F32.A Depression, unspecified; F17.200 Nicotine dependence, unspecified, uncomplicated
CPT/HCPCS: G0463; Z7500

== ENCOUNTER → 2023-03-08 | Outpatient (CLI) | payer MEDICARE, MEDICAID ==
[~2023-03-08] MED LIST changes: -ATOR20TA86 PO; -BENZ0.5T49 PO; -BUSP30TA2 PO; -GABA800T9 PO; -HALO5TAB23 PO; -MELA5TAB40 PO; -NALT50TA PO; -QUET100T34 PO; -QUET200T30 PO; -SERT-440 PO
== END | disposition home or self-care (01) ==
LOC: LABMN 12:04
PROVIDERS: ATTEND Psychiatry & Neurology Psychiatry
DX: F20.9 Schizophrenia, unspecified (principal)
CPT/HCPCS: 80178

== ENCOUNTER → 2023-03-22 | Outpatient (CLI) | payer MEDICARE, MEDICAID | END | disposition home or self-care (01) | LOC: LABMN 11:35 | PROVIDERS: ATTEND Psychiatry & Neurology Psychiatry | DX: F20.9 Schizophrenia, unspecified (principal) | CPT/HCPCS: 80178 ==

== ENCOUNTER → 2023-04-21 | Outpatient (CLI) | payer MEDICARE, MEDICAID ==
[~2023-04-21] VITALS: Ht 172.7 cm; Wt 104.0 kg
[2023-04-21 13:47] VITALS: BP 130/68; PULSE 77; RESP 20; TEMP 98.6; O2SAT 97
== END | disposition home or self-care (01) ==
LOC: SRCNTR 12:48
PROVIDERS: ATTEND Internal Medicine Pulmonary Disease
DX: G47.33 Obstructive sleep apnea (adult) (pediatric) (principal); J44.9 Chronic obstructive pulmonary disease, unspecified; E66.9 Obesity, unspecified; F20.9 Schizophrenia, unspecified; F17.200 Nicotine dependence, unspecified, uncomplicated
CPT/HCPCS: G0463; Z7500

== ENCOUNTER → 2023-10-24 | Outpatient (CLI) | payer MEDICARE, MEDICAID ==
[2023-10-24 17:33] LABS: HEMOGLOBIN A1C 5.3 % (3.8-5.6)
[2023-10-24 17:38] LABS: CHOL/HDL RATIO 4.5 (4.2-7.3)
[2023-10-24 17:53] LABS: LITHIUM 0.48 mmol/L (0.60-1.20)
== END | disposition home or self-care (01) ==
LOC: LABMN 10:35
PROVIDERS: ATTEND Psychiatry & Neurology Psychiatry
DX: F20.9 Schizophrenia, unspecified (principal); Z79.899 Other long term (current) drug therapy
CPT/HCPCS: 80061; 80178; 82947; 83036

== ENCOUNTER → 2024-01-12 | Outpatient (CLI) | payer MEDICARE, MEDICAID | END | disposition home or self-care (01) | LOC: LABMN 12:34 | PROVIDERS: ATTEND Psychiatry & Neurology Psychiatry | DX: F20.9 Schizophrenia, unspecified (principal) | CPT/HCPCS: 80173 ==

== ENCOUNTER → 2024-04-05 | Outpatient (CLI) | payer MEDICARE, MEDICAID | END | disposition home or self-care (01) | LOC: LABMN 12:50 | PROVIDERS: ATTEND Psychiatry & Neurology Psychiatry | DX: F20.9 Schizophrenia, unspecified (principal) | CPT/HCPCS: 80178 ==

== ENCOUNTER → 2025-07-04 | Outpatient (CLI) | payer MEDICARE, MEDICAID | END | disposition home or self-care (01) | LOC: LABMN 11:30 | PROVIDERS: ATTEND Psychiatry & Neurology Psychiatry | DX: F25.1 Schizoaffective disorder, depressive type (principal) | CPT/HCPCS: 80178 ==